=== PATIENT | male | born 1935 | race Caucasian/White ===

== ENCOUNTER → 2017-01-18 | Outpatient (CLI) | payer MEDICARE, BC | LOC: M LAB 08:58 | PROVIDERS: ATTEND Radiology Radiation Oncology | DX: C61 Malignant neoplasm of prostate (principal) ==

== ENCOUNTER → 2017-01-20 | Outpatient (CLI) | payer MEDICARE, BC ==
--- NOTE | 2017-01-20 09:42 | RADONC ---
RADIATION ONCOLOGY FOLLOWUP NOTE: DATE: 01/20/2017 CHART NUMBER: [id number]. DIAGNOSIS: Prostate cancer. STAGE: II, [id number]. ECOG PERFORMANCE STATUS: Zero FOLLOWUP NOTE: Mr. 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 . The patient presents today reporting that he is doing quite well with no complaints at this time related to his radiation therapy or disease. He had a PSA done on 01/18/2017, which was 5.9. This is up from previous PSA on 07/27/2016, which was 4.45. REVIEW OF SYSTEMS: The patient's review of systems is noncontributory. Denies nausea, vomiting, fevers, chills, night sweats, diplopia, headaches, anxiety or depression, anorexia, weight loss, visual disturbances, chest pain, urinary or bowel difficulties, bone pain, or neurological problems. PHYSICAL EXAMINATION: The patient is a well-developed, well-nourished male in no acute distress. HEENT exam is normocephalic, atraumatic. Extraocular movements are intact. There is no palpable cervical, supraclavicular, infraclavicular, axillary, or inguinal lymphadenopathy present. Lungs are clear to auscultation and percussion. Heart has a regular rate and rhythm. Abdomen is benign with no hepatosplenomegaly, masses, or tenderness. Rectal examination reveals a normal anal sphincter tone. His prostate is smooth with no evidence of nodularity. Skeletal examination reveals no tenderness to pressure or percussion of the bony skeleton. Extremities reveal no clubbing, cyanosis, or edema. Neurologic exam is grossly intact, as is the remainder of the physical examination. ASSESSMENT: I had a discussion with the patient with regards to hormonal therapy and referral to urology with Dr. Costa. At this time, we have agreed to see him again in followup in 3 months and repeat the PSA at that point. The patient reports that he has other medical issues, including cardiac issues, and he would prefer since he is asymptomatic to withhold any new interventions at this point. cc: MD Tanika Lisa, DO
== END ==
LOC: M ONCR 09:09
PROVIDERS: ATTEND Radiology Radiation Oncology
DX: C61 Malignant neoplasm of prostate (principal)

== ENCOUNTER → 2017-03-15 | Outpatient (CLI) | payer MEDICARE, BC ==
--- NOTE | 2017-03-15 10:00 | REP ---
Chest two views HISTORY: Hypertension Comparison: None Bilateral apical pleural thickening is present. The heart is normal in size. The pulmonary vasculature is normal in appearance. The bony structure is intact. IMPRESSION: No acute disease. Signed by Kwaku Barbour MD 03/15/2017 09:52 A
[2017-03-15 10:13] LABS: CREATININE FOR GFR 1.43 MG/DL (0.70-1.30); GLOMERULAR FILTRATION RATE 50.4 (>35); POTASSIUM SERUM 4.4 MEQ/L (3.5-5.1)
--- NOTE | 2017-03-15 19:21 | ECGEPIP ---
Stationary ECG Study [facility] Test Date: 2017-03-15 Pat Name: VIET ASHTON Department: Room: - Gender: M Emt/Paramedic: : 1935 Requested By: Vernon Mendez Order Number: [id number] Reading MD: Boston Shaikh Measurements Intervals [place] Rate: 55 P: 67 MI: 200 QRS: 25 QRSD: 93 T: 42 QT: 440 QTc: 424 Interpretive Statements Sinus bradycardia Borderline first-degree AV block. Low voltages Nonspecific ST scooping. No prior tracing. Clinical correlation advised Electronically Signed On 03-15-2017 19:20:41 EDT by Boston Shaikh
== END ==
LOC: M LAB 09:03
PROVIDERS: ATTEND Ophthalmology
DX: H25.12 Age-related nuclear cataract, left eye (principal); I10 Essential (primary) hypertension

== ENCOUNTER → 2017-05-17 | Outpatient (CLI) | payer MEDICARE, BC | LOC: M LAB 08:57 | PROVIDERS: ATTEND Radiology Radiation Oncology | DX: C61 Malignant neoplasm of prostate (principal) ==

== ENCOUNTER → 2017-05-19 | Outpatient (CLI) | payer MEDICARE, BC ==
--- NOTE | 2017-05-19 10:37 | RADONC ---
RADIATION ONCOLOGY PROGRESS NOTE DATE: 05/19/2017 CHART NUMBER: [id number] DIAGNOSIS: Prostate cancer STAGE: II, [id number]. ECOG PERFORMANCE STATUS: 0. FOLLOWUP NOTE: Mr. Hurley is very pleasant 82-year-old white male with the diagnosis of a stage II, [id number], moderately differentiated April score six (3-3) adenocarcinoma of the prostate who is presenting to us today for followup visit 11 years post completion of external beam radiation therapy. The patient presents today reporting that he is doing quite well with no complaints at this time related to his radiation therapy or disease. He is having no urinary or bowel difficulties and no bone pain. The patient is here today because his PSA had been rising. His PSA on 2016 was 5.9. A repeat PSA done 2 days ago on 05/17/2017 had come down to 5.46. REVIEW OF SYSTEMS: The patient's review of systems is noncontributory. Denies nausea, vomiting, fevers, chills, night sweats, diplopia, headaches, anxiety or depression, anorexia, weight loss, visual disturbances, chest pain, urinary or bowel difficulties, bone pain, or neurological problems. PHYSICAL EXAMINATION: The patient is a well-developed, well-nourished male in no acute distress. HEENT exam is normocephalic, atraumatic. Extraocular movements are intact. There is no palpable cervical, supraclavicular, infraclavicular, axillary, or inguinal lymphadenopathy present. Lungs are clear to auscultation and percussion. Heart has a regular rate and rhythm. Abdomen is benign with no hepatosplenomegaly, masses, or tenderness. Rectal examination reveals a normal anal sphincter tone. His prostate is smooth with no evidence of nodularity. Skeletal examination reveals no tenderness to pressure or percussion of the bony skeleton. Extremities reveal no clubbing, cyanosis, or edema. Neurologic exam is grossly intact, as is the remainder of the physical examination. ASSESSMENT: The patient is clinically doing well at this point. He has no complaints or other issues. In light of the fact that the PSA has actually come down a bit, I have scheduled him for a repeat PSA in six months' time. Once again, I did give him the option of seeing a urologist. Considering his advanced age, however, and the fact that the PSA is not rising at this point, I think it reasonable for his request to continue to follow rather than see the urologist for hormonal therapy. cc: MD Tanika Lisa, DO [facility]
== END ==
LOC: M ONCR 09:28
PROVIDERS: ATTEND Radiology Radiation Oncology
DX: C61 Malignant neoplasm of prostate (principal)

== ENCOUNTER → 2017-12-20 | Outpatient (CLI) | payer MEDICARE, BC ==
[2017-12-20 10:22] LABS: PROSTATIC SPECIFIC AG MONITOR 6.23 NG/ML (< 4.0)
== END ==
LOC: M LAB 08:45
DX: C61 Malignant neoplasm of prostate (principal)
CPT/HCPCS: 84153

== ENCOUNTER → 2017-12-22 | Outpatient (CLI) | payer MEDICARE, BC | LOC: M ONCR 08:58 | DX: C61 Malignant neoplasm of prostate (principal) | CPT/HCPCS: G0463 ==

== ENCOUNTER → 2018-06-20 | Outpatient (CLI) | payer MEDICARE, BC ==
[2018-06-20 10:20] LABS: PROSTATIC SPECIFIC AG MONITOR 6.33 NG/ML (< 4.0)
== END ==
LOC: M LAB 09:22
DX: C61 Malignant neoplasm of prostate (principal)
CPT/HCPCS: 84153

== ENCOUNTER → 2018-12-02 | Outpatient (REF) | payer MEDICARE, BC | LOC: M LAB REF 17:57 | PROVIDERS: ATTEND Internal Medicine | DX: M10.072 Idiopathic gout, left ankle and foot (principal) ==

== ENCOUNTER → 2018-12-26 | Outpatient (CLI) | payer MEDICARE, BC | LOC: M LAB 09:25 | PROVIDERS: ATTEND Radiology Radiation Oncology | DX: C61 Malignant neoplasm of prostate (principal) ==

== ENCOUNTER → 2018-12-28 | Outpatient (CLI) | payer MEDICARE, BC ==
--- NOTE | 2018-12-29 09:38 | RADONC ---
RADIATION ONCOLOGY FOLLOWUP NOTE DATE: 12/28/2018 CHART NUMBER: [id number] DIAGNOSIS: Prostate cancer. STAGE: II, [id number] ECOG PERFORMANCE STATUS: 0 FOLLOWUP NOTE: Mr. Hurley is a very pleasant, 83-year-old white male soon to turn 84 with the diagnosis of a stage II, [id number], moderately differentiated [place] score 6 (3-3) adenocarcinoma of prostate who is presenting to us today for routine followup visit almost 13 years post completion of external beam radiation therapy. The patient presents today reporting that he is doing generally quite well for his age. He says he is rather forgetful. REVIEW OF SYSTEMS: His review of systems is otherwise generally noncontributory except for the physical limitations secondary to his advanced age. Denies nausea, vomiting, fevers, chills, night sweats, diplopia, headaches, anxiety or depression, anorexia, weight loss, visual disturbances, chest pain, urinary or bowel difficulties, bone pain, or neurological problems. PHYSICAL EXAMINATION: The patient is a well-developed, well-nourished male in no acute distress. HEENT exam is normocephalic, atraumatic. Extraocular movements are intact. There is no palpable cervical, supraclavicular, infraclavicular, axillary, or inguinal lymphadenopathy present. Lungs are clear to auscultation and percussion. Heart has a regular rate and rhythm. Abdomen is benign with no hepatosplenomegaly, masses, or tenderness. Rectal examination reveals a normal anal sphincter tone. Prostate is smooth with no evidence nodularity. Skeletal examination reveals no tenderness to pressure or percussion of the bony skeleton. Extremities reveal no clubbing, cyanosis, or edema. Neurologic exam is grossly intact, as is the remainder of the physical examination. ASSESSMENT: The patient is clinically doing quite well at this point. His PSA done on 12/26/2018 has risen again to 8.27. Previous PSA on 06/20/2018 was 6.33. PSA done on 12/20/2017 was 6.23. PSA prior to that on 05/17/2017 was 5.46 and PSA done on 01/18/2017 was 5.9. We have been following Mr. Hurley closely for many years and his PSAs continue to rise slowly. I have once again had a very lengthy discussion with him regarding the possibilities of androgen deprivation shots with Dr. Montelongo. The patient reports that he had this discussion with urology and had decided in the past not to undergo such treatments. At this time, the patient sites his advanced age and reports that he really does not wish to do anything else with regards to this. Indeed, he told me had multiple physical issues and really does not wish to continue with the close observation. He reports that he had decided not to treat this at all at this point and does not really see the need to continue this followup. I have therefore discharged the patient from our followup except on a p.r.n. basis. He does have my cell phone number and office number and I made clear to him that we are available to him at anytime. I have once again went through the possible negative ramifications if this disease metastasizes. Indeed, however at this point considering his age I do not think he can make an incorrect decision. I think he is being reasonable. I have therefore discharged him from our followup as noted above. cc: MD René Guerrero Jr, MD
== END ==
LOC: M ONCR 09:06
PROVIDERS: ATTEND Radiology Radiation Oncology
DX: C61 Malignant neoplasm of prostate (principal); Z92.3 Personal history of irradiation

== ENCOUNTER → 2019-03-06 | Outpatient (REF) | payer MEDICARE, BC | LOC: M LAB REF 12:47 | PROVIDERS: ATTEND Internal Medicine | DX: M10.072 Idiopathic gout, left ankle and foot (principal) ==

== ENCOUNTER → 2019-06-06 | Outpatient (REF) | payer MEDICARE, BC | LOC: M LAB REF 12:34 | PROVIDERS: ATTEND Internal Medicine | DX: M10.072 Idiopathic gout, left ankle and foot (principal) ==

== ENCOUNTER → 2020-06-24 | Outpatient (REF) | payer MEDICARE, BC ==
[2020-06-24 13:42] LABS: FOLATE 8.3 NG/ML; VITAMIN B12 LEVEL 262 PG/ML
== END ==
LOC: M LAB REF 12:02
PROVIDERS: ATTEND Internal Medicine
DX: R41.81 Age-related cognitive decline (principal)

== ENCOUNTER → 2021-11-10 | Outpatient (REF) | payer MEDICARE, BC | LOC: M LAB REF 16:07 | PROVIDERS: ATTEND Physician Assistant Medical | DX: M10.9 Gout, unspecified (principal) ==

== ENCOUNTER → 2021-12-19 | Outpatient (CLI) | payer MEDICARE, BC | LOC: M WUC 15:32 | PROVIDERS: ATTEND Internal Medicine | DX: M19.071 Primary osteoarthritis, right ankle and foot (principal); M10.9 Gout, unspecified ==

== ENCOUNTER → 2022-06-22 | Outpatient (REF) | payer OTHER, BC | LOC: M LAB REF 12:31 | PROVIDERS: ATTEND Internal Medicine | DX: E79.0 Hyperuricemia without signs of inflammatory arthritis and tophaceous disease (principal) ==

== ENCOUNTER → 2022-12-21 | Outpatient (REF) | payer OTHER, BC | LOC: M LAB REF 12:03 | PROVIDERS: ATTEND Internal Medicine | DX: E79.0 Hyperuricemia without signs of inflammatory arthritis and tophaceous disease (principal) ==

== ENCOUNTER 2023-07-12 12:23 | Emergency (ER) | payer BC, MEDICARE, OTHER ==
[~2023-07-12] VITALS: Ht 170.2 cm; Wt 65.9 kg
[2023-07-12] MEDS ORDERED: AMLO1TAB25 PO (12:54)
[2023-07-12] MEDS ORDERED: ASPI-1 PO (12:54)
[2023-07-12] MEDS ORDERED: FLUO20CA22 PO (12:54)
[2023-07-12] MEDS ORDERED: JARD1TAB (12:54)
[2023-07-12] MEDS ORDERED: ATIV1TAB10 (12:54)
[2023-07-12] MEDS ORDERED: LISI40TA4 PO (12:54)
[2023-07-12] MEDS ORDERED: PRAV40TA2 PO (12:54)
[2023-07-12] MEDS ORDERED: METO50TA7 PO (12:54)
[2023-07-12] MEDS ORDERED: HYDR-3490 (12:54)
[2023-07-12 13:53] LABS: BASO % 0.2 % (0.0-1.0); EOS % 0.2 % (0.0-3.0); HEMATOCRIT 46.1 % (42.0-52.0); HEMOGLOBIN 14.9 g/dl (13.5-17.5); LYMPH # 0.4 10^3/uL (1.5-5.0); LYMPH % 6.6 % (24.0-44.0); MEAN CORPUSCULAR HEMOGLOBIN 29.6 pg (27.0-33.0); MEAN CORPUSCULAR HGB CONC 32.3 g/dl (32.0-36.5); MEAN CORPUSCULAR VOLUME 91.7 fl (80.0-96.0); MONO # 0.4 10^3/uL (0.0-0.8); MONO % 7.3 % (2.0-8.0); NEUTROPHILS # 4.9 10^3/uL (1.5-8.5); NEUTROPHILS % 85.5 % (36.0-66.0); PLATELET COUNT, AUTOMATED 182 10^3/uL (150-450); RED BLOOD COUNT 5.03 10^6/uL (4.30-6.10); WHITE BLOOD COUNT 5.8 10^3/uL (4.0-10.0)
[2023-07-12 14:17] LABS: ALBUMIN 3.9 G/DL (3.2-5.2); BILIRUBIN,DIRECT 0.3 MG/DL (<0.4); BILIRUBIN,TOTAL 0.7 MG/DL (0.3-1.2); CREATININE FOR GFR 1.43 MG/DL (0.70-1.30); GLOMERULAR FILTRATION RATE 49.6 (>35); POTASSIUM SERUM 4.3 MMOL/L (3.5-5.1); TOTAL PROTEIN 6.7 G/DL (5.7-8.2)
[2023-07-12 16:21] VITALS: TEMP 96.4
[2023-07-12 18:00] VITALS: BP 138/65; O2SAT 99
== END 2023-07-12 19:32 | disposition home or self-care (01) ==
LOC: M ED 12:23
DX: R10.84 Generalized abdominal pain (principal); I25.10 Atherosclerotic heart disease of native coronary artery without angina pectoris; I11.9 Hypertensive heart disease without heart failure; E11.9 Type 2 diabetes mellitus without complications; E78.5 Hyperlipidemia, unspecified; Z79.82 Long term (current) use of aspirin; Z79.899 Other long term (current) drug therapy

== ENCOUNTER → 2023-12-27 | Outpatient (REF) | payer OTHER ==
[~2023-12-27] MED LIST: AMLO1TAB25 PO; ASPI-1 PO; ATIV1TAB10; FLUO20CA22 PO; HYDR-3490; JARD1TAB; LISI40TA4 PO; METO50TA7 PO; PRAV40TA2 PO
== END ==
LOC: M LAB REF 16:14
PROVIDERS: ATTEND Internal Medicine
DX: E79.0 Hyperuricemia without signs of inflammatory arthritis and tophaceous disease (principal)